=== PATIENT | female | born 1935 | race Caucasian/White ===

== ENCOUNTER 2017-03-14 11:46 | Emergency (ER) | payer MEDICARE ==
[2017-03-14 12:00] VITALS: BP 119/56
[2017-03-14] MEDS ORDERED: CYCL-331 PO (12:22)
[2017-03-14] MEDS ORDERED: SERT100T PO (12:22)
[2017-03-14] MEDS ORDERED: METO25TA4 PO (12:22)
[2017-03-14] MEDS ORDERED: METO10TA81 PO (12:22)
[2017-03-14] MEDS ORDERED: LISI1TAB7 PO (12:22)
[2017-03-14] MEDS ORDERED: GABA-586 PO (12:22)
[2017-03-14] MEDS ORDERED: HYDROcodone/APAP 10/325 1 TAB TABLET ONE (12:24)
[2017-03-14] MEDS ORDERED: HYDROcodone/APAP 5/325MG 1 TAB TABLET PO ONE (12:30)
--- NOTE | 2017-03-14 12:39 | RAD ---
Examination: 3 views of the right knee History: History of trauma to right knee Comparison: None available Findings: The alignment of the right knee grossly appears unremarkable. There is a linear calcification identified in the medial, lateral meniscus likely secondary to chondrocalcinosis. There is no obvious acute fracture identified. Osseous demineralization limits evaluation. There is moderate joint space loss identified in the medial, lateral, patellofemoral compartments. Impression: 1. Tricompartmental degenerative changes. 2. Linear calcifications identified in the medial, lateral meniscus region likely chondrocalcinosis. 2. No acute osseous findings.
--- NOTE | 2017-03-14 15:11 | ED.ADGEN ---
Past History Past Medical History: CAD, Heart Disease, Hypertension Past Surgical History: Coronary Bypass Surgery, Other Alcohol Use: None Drug Use: None Adult General Chief Complaint Chief Complaint Right knee pain HPI HPI Patient is a 81-year-old male presents with persistent right knee pain 2 days after stumbling and falling 2 days ago. Patient reports direct impact to right knee. Pain is worse with palpation and weightbearing. Patient is partial weightbearing and uses a walker and wheelchair due to her osteoarthritis. Pain is pearly relieved with over the counter pain medications. She has not been evaluated for this condition prior to her visit today. Patient is not on anticoagulation therapy. Review of Systems Review of Systems Review symptoms as per history of present illness. All other review symptoms are negative. Current Medications Current Medications Current Medications Medications (Trade) Dose Ordered Sig/Travis Start Time Stop Time Status Last Admin Dose Admin Acetaminophen/ Hydrocodone Bitart (Lortab 10/325) 1 tab STK-MED ONCE 03/14/17 12:24 03/14/17 12:25 DC Acetaminophen/ Hydrocodone Bitart (Lortab 5/325) 1 tab 1X ONCE 03/14/17 12:30 03/14/17 12:31 DC 03/14/17 12:26 1 TAB Allergies Allergies Allergies Coded Allergies Type Severity Reaction Last Updated Verified No Known Drug Allergies 03/14/17 No Physical Exam Physical Exam Constitutional: Well developed, well nourished, no acute distress, non-toxic appearance. [] HENT: Normocephalic, atraumatic, bilateral external ears normal, oropharynx moist, no oral exudates, nose normal. [] Eyes: PERRLA, EOMI, conjunctiva normal, no discharge. [] Neck: Normal range of motion, no tenderness, supple, no stridor. [] Cardiovascular:Heart rate regular rhythm, no murmur [] Lungs & Thorax: Bilateral breath sounds clear to auscultation [] Abdomen: Bowel sounds normal, soft, no tenderness, no masses, no pulsatile masses. [] Skin: Warm, dry, no erythema, no rash. [] Back: No tenderness, no CVA tenderness. [] Extremities: Right knee,, no gross deformity, anterior compartment swelling, pain with palpation and range of motion,[] Neurologic: Alert and oriented X 3, normal motor function, normal sensory function, no focal deficits noted. [] Psychologic: Affect normal, judgement normal, mood normal. [] Current Patient Data Vital Signs Vital Signs Date Time Temp Pulse Resp B/P (MAP) Pulse Ox O2 Delivery O2 Flow Rate FiO2 03/14/17 12:26 16 96 Room Air 03/14/17 12:00 98.1 77 EKG EKG [] Radiology/Procedures Radiology/Procedures [Right knee x-ray: No fracture per radiology report] Course & Med Decision Making Course & Med Decision Making Pertinent Labs and Imaging studies reviewed. (See chart for details) [Accidental fall with right knee pain without evidence of fracture. We'll treat supportively with PCP follow-up.] Final Impression Final Impression [#1 right knee pain] Problems: Dragon Disclaimer Dragon Disclaimer This electronic medical record was generated, in whole or in part, using a voice recognition dictation system. DESTINI METZGER DO Mar 14, 2017 15:11
== END 2017-03-14 12:40 | disposition home or self-care (01) ==
LOC: ER 11:46
DX: M25.561 Pain in right knee (principal); I25.10 Atherosclerotic heart disease of native coronary artery without angina pectoris; I11.9 Hypertensive heart disease without heart failure; W01.0XXA Fall on same level from slipping, tripping and stumbling without subsequent striking against object, initial encounter; Y93.89 Activity, other specified; Y99.8 Other external cause status; Y92.89 Other specified places as the place of occurrence of the external cause
CPT/HCPCS: 73562; 99284